=== PATIENT | female | born 1955 | race Caucasian/White ===

== ENCOUNTER 2019-01-23 12:09 | Outpatient (CLI) | payer OTHER ==
--- NOTE | 2019-01-23 15:48 | MMO ---
Bilateral MAMMO Bilat Screen [facility]. CLINICAL HISTORY: Patient is 63 years old and is seen for screening. The patient has no family history of breast cancer. The patient has no personal history of cancer. The patient has a history of Implants in 2009. VIEWS: The views performed were: bilateral craniocaudal with tomosynthesis and bilateral mediolateral oblique with tomosynthesis. MAMMOGRAM FINDINGS: The breasts are heterogeneously dense, which could obscure a lesion on mammography. There are no suspicious masses, suspicious calcifications, or new areas of architectural distortion. Normal implants are present.. IMPRESSION: THERE IS NO MAMMOGRAPHIC EVIDENCE OF MALIGNANCY. A ROUTINE FOLLOW-UP MAMMOGRAM IN 1 YEAR IS RECOMMENDED. THE RESULTS OF THIS EXAM WERE SENT TO THE PATIENT. ACR BI-RADS Category 1 - Negative MAMMOGRAPHY NOTE: 1. A negative mammogram report should not delay a biopsy if a dominant of clinically suspicious mass is present. 2. Approximately 10% to 15% of breast cancers are not detected by mammography. 3. Adenosis and dense breasts may obscure an underlying neoplasm.
== END 2019-01-23 12:10 | disposition home or self-care (01) ==
LOC: BICMAMMO 12:09
PROVIDERS: ATTEND Internal Medicine Geriatric Medicine
DX: Z12.31 Encounter for screening mammogram for malignant neoplasm of breast (principal); Z98.82 Breast implant status
CPT/HCPCS: 77063; 77067

== ENCOUNTER 2020-01-14 08:41 | Outpatient (CLI) | payer BC ==
--- NOTE | 2020-01-14 11:37 | NM ---
RADIONUCLIDE PARATHYROID SCAN WITH PLANAR IMAGES AND SPECT CT: HISTORY: Hyperparathyroidism, unspecified. RADIOPHARMACEUTICAL: 26 mCi technetium-99m sestamibi injected intravenously. FINDINGS: There is physiologic activity noted in the salivary glands, thyroid gland, heart, and visualized port ions of the liver. There is a focal area of persistent increased uptake in the right parathyroid glan d (likely inferior). No other suspicious abnormalities are seen. IMPRESSION: Findings are consistent with right-sided parathyroid adenoma (likely inferior). POS: JORDINA
== END 2020-01-14 08:42 | disposition home or self-care (01) ==
LOC: NM 08:41
PROVIDERS: ATTEND Student in an Organized Health Care Education/Training Program
DX: E21.3 Hyperparathyroidism, unspecified (principal)
CPT/HCPCS: 78072; A9500

== ENCOUNTER 2020-11-09 07:51 | Outpatient (CLI) | payer BC ==
--- NOTE | 2020-11-09 09:40 | CT ---
CT of the neck with and without IV contrast-parathyroid protocol: 11/09/2020 COMPARISON: None HISTORY: Hyperparathyroidism TECHNIQUE: Axial CT imaging at 2 mm intervals from the skull base through the mid chest with and with out IV contrast using a parathyroid protocol. Coronal and sagittal reformatted imaging obtained. FINDINGS: Partially imaged bilateral breast implants are present. The imaged lung parenchyma demonstr ates no acute findings. 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 Partially visualized coronary arterial calcification is noted. The visualized paranasal sinuses and mastoid air cells appear grossly unremarkable. The retroantral and the parapharyngeal fat appears clear bilaterally. The parotid glands and the subm andibular glands appear unremarkable. Motion artifact limits assessment at the level of the glottis. The tonsillar pillars, the epiglottis and the preepiglottic fat, the hyoid bone, thyroid cartilage, a nd the cricoid cartilage appear unremarkable. There is a oval mass abutting the posterior right lateral aspect of the esophagus within the right tr acheoesophageal groove, best seen on axial image 51 measuring 1.6 x 1.0 x 1.6 cm. The superior margin of this lesion is abutting the inferior posterior aspect of the right lobe of the thyroid glan d. This corresponds with the abnormality noted on the nuclear medicine parathyroid scan performed 01/14/2020, consistent with a parathyroid adenoma. The vascular structures of the neck appear patent. There is no lymphadenopathy evident within the nec k. The thyroid gland demonstrates a grossly unremarkable noncontrast enhanced appearance. Review of the osseous structures demonstrates partial fusion of the bilateral facet joints and interv ertebral disc at the C4-5 level. There is multilevel bilateral cervical spine facet hypertrophy. There is significant upper/mid thoracic spine dextroscoliosis. No worrisome lytic or blastic bone les ion is noted. IMPRESSION: Findings consistent with a parathyroid adenoma on the right abutting the posterior right lateral aspect of the esophagus at the level of the thoracic inlet just inferior and posterior to the right lobe of the thyroid gland abutting the ventral aspect of the C7 and T1 vertebral bodies.
[2020-11-09] MEDS ORDERED: Iopamidol-370 76% 500 ML 1 ML ONE (10:43)
== END 2020-11-09 07:52 | disposition home or self-care (01) ==
LOC: BICCT 07:51
PROVIDERS: ATTEND Student in an Organized Health Care Education/Training Program
DX: E21.3 Hyperparathyroidism, unspecified (principal)
CPT/HCPCS: 70492; 82565; Q9967

== ENCOUNTER 2021-01-21 07:29 | Outpatient (CLI) | payer BC | END 2021-01-21 07:30 | disposition home or self-care (01) | LOC: BICULT 07:29 | PROVIDERS: ATTEND Family Medicine | DX: I10 Essential (primary) hypertension (principal); E83.52 Hypercalcemia | CPT/HCPCS: 76770; 93975 ==

== ENCOUNTER 2021-01-27 08:48 | Outpatient (CLI) | payer BC ==
[2021-01-27 10:15] LABS: Hemoglobin 14.7 g/dL (12.0-15.5)
[2021-01-27 10:32] LABS: Anion Gap 14 mmol/L (10-20); BUN (Urea Nitrogen) 19 mg/dL (9.8-20.1); Calc. Creatinine Clearance 0 mL/min (70-130); Calcium 10.4 mg/dL (7.8-10.44); Carbon Dioxide 27 mmol/L (23-31); Chloride 102 mmol/L (98-107); Glucose 100 mg/dL (80-115); Potassium 4.4 mmol/L (3.5-5.1); Sodium 139 mmol/L (136-145)
[2021-01-27 22:12] LABS: SARS-CoV-2 PCR by NAA Not Detected (NotDetected)
== END 2021-01-27 08:49 | disposition home or self-care (01) ==
LOC: LABBT 08:48
PROVIDERS: ATTEND Student in an Organized Health Care Education/Training Program
DX: Z01.818 Encounter for other preprocedural examination (principal); E21.3 Hyperparathyroidism, unspecified; M81.0 Age-related osteoporosis without current pathological fracture; D35.1 Benign neoplasm of parathyroid gland; Z20.822 Contact with and (suspected) exposure to COVID-19
CPT/HCPCS: 80048; 85014; 85018; 87635; 93005; 93010; U0003; U0005

== ENCOUNTER 2021-02-01 06:45 | Observation (INO) | payer BC ==
[2021-01-31 13:15] VITALS: BMI 20.3
[2021-02-01] MEDS ORDERED: Fentanyl 250 MCG/5 ML VIAL ONE (06:53)
[2021-02-01] MEDS ORDERED: Acetaminophen 500 MG TAB ONE (07:14)
[2021-02-01] MEDS ORDERED: Lidocaine 1% w/Epinephrine 1:100K 20 ML VIAL ONE (08:41)
[2021-02-01] MEDS ORDERED: Bacitracin Zinc Ointment 30 gm TUBE ONE (08:41)
[2021-02-01] MEDS ORDERED: Midazolam HCl 2 mg/2 ml Vial ONE (08:52)
[2021-02-01] MEDS ORDERED: Esmolol 100 MG/10 ML VIAL ONE (09:03)
[2021-02-01] MEDS ORDERED: Ondansetron PF 4 MG/2 ML Vial ONE (09:03)
[2021-02-01] MEDS ORDERED: ePHEDrine Sulfate 50 MG/10 ML VIAL ONE (09:03)
[2021-02-01] MEDS ORDERED: PHENYLEPHRINE-NS 100 MCG/ML 10 ML SYRINGE ONE (09:03)
[2021-02-01] MEDS ORDERED: Ketorolac Tromethamine 30 MG/ML VIAL ONE (09:03)
[2021-02-01] MEDS ORDERED: Dexamethasone 20 MG/5 ML VIAL ONE (09:03)
[2021-02-01] MEDS ORDERED: PROPOFOL 200 MG/20 ML VIAL ONE (09:03)
[2021-02-01] MEDS ORDERED: Rocuronium Bromide 10 MG/ML (10ML VIAL) ONE (09:03)
[2021-02-01] MEDS ORDERED: Lidocaine 1% PF 5 ML VIAL ONE (09:03)
[2021-02-01] MEDS ORDERED: Ondansetron PF 4 MG/2 ML Vial IVP PRN (14:05)
[2021-02-01] MEDS ORDERED: Morphine 4 MG/ML VIAL SLOW IVP PRN (14:06)
[2021-02-01] MEDS ORDERED: HYDROcodone/Acetaminophen 5/325 mg Tablet PO PRN (14:06)
[2021-02-01] MEDS ORDERED: Lactated Ringer's 1,000 ML IV SCH (14:15)
[2021-02-01] MEDS: Calcium Carbonate 500 MG ChewTAB PO SCH ×2 (15:42→20:35)
[2021-02-01] MEDS: Docusate 100 MG CAP PO SCH (20:34)
[2021-02-01] MEDS ORDERED: DICLOFENAC POTASSIUM 50 MG PO PRN (21:22)
[2021-02-01] MEDS ORDERED: NARATRIPTAN HCL 2.5 MG PO SCH (21:30)
[2021-02-01] MEDS ORDERED: [UNRECOGNIZED DRUG - OTHER] IM SCH (21:30)
[2021-02-02 05:58] LABS: Calcium 9.5 mg/dL (7.8-10.44); Magnesium 1.8 mg/dL (1.6-2.6)
[2021-02-02] MEDS ORDERED: Levothyroxine Sodium 50 MCG TAB PO SCH (06:00)
[2021-02-02 07:43] VITALS: BP 126/75; TEMP 97.9
[2021-02-02] MEDS ORDERED: Lisinopril 5 MG TAB PO SCH (09:00)
[2021-02-02] MEDS ORDERED: Calcitriol 0.25 MCG CAP PO SCH (09:00)
[2021-02-02] MEDS: Calcium Carbonate 500 MG ChewTAB PO SCH (09:45)
[2021-02-02] MEDS: Docusate 100 MG CAP PO SCH (09:45)
== END 2021-02-02 10:19 | disposition home or self-care (01) ==
LOC: SDC 06:45 → SURG A 15:02
PROVIDERS: ADMIT Student in an Organized Health Care Education/Training Program; ATTEND Student in an Organized Health Care Education/Training Program
PROC: 0GTQ0ZZ Resection of Multiple Parathyroid Glands, Open Approach (ICD-10-PCS; principal; 2021-02-01)
PROC: 07T10ZZ Resection of Right Neck Lymphatic, Open Approach (ICD-10-PCS; 2021-02-01)
DX: E21.3 Hyperparathyroidism, unspecified (principal); D35.1 Benign neoplasm of parathyroid gland; K22.8 Other specified diseases of esophagus; R59.0 Localized enlarged lymph nodes; M81.0 Age-related osteoporosis without current pathological fracture; E03.9 Hypothyroidism, unspecified; Z87.891 Personal history of nicotine dependence; Z79.899 Other long term (current) drug therapy
CPT/HCPCS: 36415; 82310; 83735; 83970; 84100; 88305; 88331; 88334; G0378; J0690; J1100; J1885; J2250; J2405; J2704; J3010

== ENCOUNTER 2021-04-18 10:16 | Outpatient (CLI) | payer BC | END 2021-04-18 10:17 | disposition home or self-care (01) | LOC: BICMAMMO 10:16 | PROVIDERS: ATTEND Family Medicine | DX: Z12.31 Encounter for screening mammogram for malignant neoplasm of breast (principal); Z98.82 Breast implant status; N64.89 Other specified disorders of breast | CPT/HCPCS: 77063; 77067 ==

== ENCOUNTER 2022-01-10 08:24 | Outpatient (CLI) | payer BC | END 2022-01-10 08:25 | disposition home or self-care (01) | LOC: BICMAMMO 08:24 | PROVIDERS: ATTEND Family Medicine | DX: N63.11 Unspecified lump in the right breast, upper outer quadrant (principal) | CPT/HCPCS: 77066; G0279 ==

== ENCOUNTER 2022-03-28 15:37 | Outpatient (CLI) | payer BC | END 2022-03-28 15:38 | disposition home or self-care (01) | LOC: BICRAD 15:37 | PROVIDERS: ATTEND Family Medicine | DX: M54.41 Lumbago with sciatica, right side (principal); M41.9 Scoliosis, unspecified; M47.816 Spondylosis without myelopathy or radiculopathy, lumbar region | CPT/HCPCS: 72100 ==

== ENCOUNTER 2022-04-12 08:50 | Outpatient (CLI) | payer BC | END 2022-04-12 08:51 | disposition home or self-care (01) | LOC: SCSMRI 08:50 | PROVIDERS: ATTEND Family Medicine | DX: G95.19 Other vascular myelopathies (principal); M41.9 Scoliosis, unspecified; M48.07 Spinal stenosis, lumbosacral region; M48.061 Spinal stenosis, lumbar region without neurogenic claudication; R93.421 Abnormal radiologic findings on diagnostic imaging of right kidney | CPT/HCPCS: 72148 ==

== ENCOUNTER 2022-05-01 08:52 | Outpatient (CLI) | payer BC | END 2022-05-01 08:53 | disposition home or self-care (01) | LOC: BICMAMMO 08:52 | PROVIDERS: ATTEND Family Medicine | DX: M81.8 Other osteoporosis without current pathological fracture (principal); M85.89 Other specified disorders of bone density and structure, multiple sites | CPT/HCPCS: 77080 ==

== ENCOUNTER 2022-06-29 08:01 | Outpatient (CLI) | payer BC | END 2022-06-29 08:02 | disposition home or self-care (01) | LOC: CT 08:01 | PROVIDERS: ATTEND Urology | DX: N28.89 Other specified disorders of kidney and ureter (principal); D35.1 Benign neoplasm of parathyroid gland; K76.9 Liver disease, unspecified; M41.9 Scoliosis, unspecified | CPT/HCPCS: 71260; 78306; A9503 ==

== ENCOUNTER 2022-08-02 09:52 | Outpatient (CLI) | payer BC | END 2022-08-02 09:53 | disposition home or self-care (01) | LOC: LABBT 09:52 | PROVIDERS: ATTEND Urology | DX: Z01.818 Encounter for other preprocedural examination (principal); D35.1 Benign neoplasm of parathyroid gland; I10 Essential (primary) hypertension; E21.3 Hyperparathyroidism, unspecified; M54.16 Radiculopathy, lumbar region; M48.062 Spinal stenosis, lumbar region with neurogenic claudication; R35.0 Frequency of micturition; M41.9 Scoliosis, unspecified; N28.89 Other specified disorders of kidney and ureter | CPT/HCPCS: 71046; 80048; 81001; 85027; 85610; 85730; 86850; 86900; 86901; 87086 ==

== ENCOUNTER 2022-08-07 06:02 | Inpatient (IN) | payer BC ==
[2022-08-02 11:37] LABS: Hemoglobin 14.1 g/dL (12.0-15.5); Mean Corpuscular HGB CONC 34.3 g/dL (32.0-36.0); Mean Corpuscular Hemoglobin 30.3 pg (27.0-33.0); Mean Corpuscular Volume 88.2 fl (81.6-98.3); Mean Platelet Volume 10.3 fl (7.4-10.4); Platelet Count 249 10x3/uL (150-450); Red Blood Cell (RBC) Count 4.66 10x6/uL (3.90-5.03); White Blood Cell (WBC) Count 5.5 10x3/uL (3.5-10.5)
[2022-08-02 11:44] LABS: Bilirubin Neg (Negative); Blood, Urine 50 (Negative); Clarity Clear (Clear); Glucose, Urine (Dipstick) Normal (Negative); Ketone, Urine Negative (Negative); Leukocyte Negative (Negative); Nitrite Negative (Negative); Protein, Urine (Dipstick) Negative (Neg-Trace); Specific Gravity, Urine 1.015 (1.005-1.030); Urobilinogen Normal mg/dL (Less than 2)
[2022-08-02 11:55] LABS: PTT 25.2 sec (22.0-33.0); Prothrombin Time 10.5 sec (9.5-12.1)
[2022-08-02 12:07] LABS: Anion Gap 12 mmol/L (10-20); BUN (Urea Nitrogen) 18 mg/dL (9.8-20.1); Calc. Creatinine Clearance 0 mL/min (70-130); Calcium 9.7 mg/dL (7.8-10.44); Carbon Dioxide 29 mmol/L (23-31); Chloride 104 mmol/L (98-107); Estimated GFR 84; Glucose 82 mg/dL (80-115); Potassium 4.2 mmol/L (3.5-5.1); Sodium 141 mmol/L (136-145)
[2022-08-02 12:18] LABS: Bacteria/HPF Rare-Few HPF (None Seen); RBC/HPF 0-3 HPF (0-3); Squamous Epithelial 0-3 HPF (0-3); WBC/HPF 0-3 HPF (0-3)
[2022-08-04 09:26] VITALS: BMI 20.7
[2022-08-07] MEDS ORDERED: Levofloxacin 500 mg/D5W 100 ml Premix Bag ONE ×2 (06:27→07:34)
[2022-08-07] MEDS ORDERED: CEFAZOLIN 2 GM VIAL ONE (06:27)
[2022-08-07] MEDS ORDERED: Methylene Blue 50 MG/10 ML AMPUL ONE (06:47)
[2022-08-07] MEDS ORDERED: Gentamicin 80 MG/2 ML VIAL ONE (06:47)
[2022-08-07] MEDS ORDERED: fentaNYL PF 100 MCG/2 ML SYRINGE ONE (06:49)
[2022-08-07] MEDS ORDERED: Bupivacaine/Epinephrine 0.25% 30 ML VIAL ONE ×2 (06:49→07:39)
[2022-08-07] MEDS ORDERED: Dexmedetomidine 200 MCG/2 ML VIAL ONE (06:49)
[2022-08-07] MEDS ORDERED: Sodium Chloride 0.9% 100 ML ONE (06:51)
[2022-08-07 07:12] LABS: SARS-CoV-2 NAA Rapid Test Not Detected (NotDetected)
[2022-08-07] MEDS ORDERED: Fentanyl 100 MCG/2 ML VIAL ONE (07:13)
[2022-08-07] MEDS ORDERED: Midazolam HCl 2 mg/2 ml Vial ONE (07:13)
[2022-08-07] MEDS ORDERED: Dexamethasone 20 MG/5 ML VIAL ONE (07:55)
[2022-08-07] MEDS ORDERED: NEOSTIGMINE 3 MG/3 ML SYR 3 MG/3 ML SYRINGE ONE (07:55)
[2022-08-07] MEDS ORDERED: PHENYLEPHRINE-NS 100 MCG/ML 10 ML SYRINGE ONE (07:55)
[2022-08-07] MEDS ORDERED: Ondansetron PF 4 MG/2 ML Vial ONE (07:55)
[2022-08-07] MEDS ORDERED: ePHEDrine 50 MG/ML VIAL ONE (07:55)
[2022-08-07] MEDS ORDERED: PROPOFOL 200 MG/20 ML VIAL ONE (07:55)
[2022-08-07] MEDS ORDERED: Glycopyrrolate 0.2 MG/ML 5 ML SYRINGE ONE (07:55)
[2022-08-07] MEDS ORDERED: Rocuronium Bromide 10 MG/ML (10ML VIAL) ONE (07:55)
[2022-08-07] MEDS ORDERED: Lidocaine 1.5% w/Epi 1:200K 30 ML VIAL (Epid Use) ONE (07:55)
[2022-08-07] MEDS ORDERED: Promethazine HCl 25 MG/ML VIAL IM PRN ×2 (09:15→10:30)
[2022-08-07] MEDS ORDERED: Bupivacaine 0.25% 10 ML VIAL EPIDURAL PRN (09:15)
[2022-08-07] MEDS ORDERED: Oxybutynin 5 MG TAB PO PRN (10:25)
[2022-08-07] MEDS ORDERED: Mag-Al 1200 mg/1200 mg/30 ML UDCUP PO PRN (10:25)
[2022-08-07] MEDS ORDERED: Ondansetron PF 4 MG/2 ML Vial IVP PRN (10:25)
[2022-08-07] MEDS ORDERED: hydrALAZINE 20 MG/ML VIAL SLOW IVP PRN (10:25)
[2022-08-07] MEDS ORDERED: diphenhydrAMINE 50 MG/ML VIAL IVP PRN (10:25)
[2022-08-07] MEDS ORDERED: Ondansetron HCl/PF 4 MG/2 ML Vial IVP PRN (10:30)
[2022-08-07] MEDS ORDERED: Promethazine HCl 25 MG/ML VIAL IVPB PRN (10:30)
[2022-08-07 11:06] LABS: #Basophils 0.1 thou/uL (0.0-0.2); #Lymphocytes 0.9 thou/uL (1.20-3.40); #Monocytes 0.2 thou/uL (0.11-0.59); #Neutrophils 8.1 thou/uL (1.40-6.50); %Eosinophils 0.3 % (0.0-10.0); %Lymphocytes 9.6 % (21.0-51.0); %Monocytes 2.1 % (0.0-10.0); Hemoglobin 13.4 g/dL (12.0-16.0); Mean Corpuscular HGB CONC 32.7 g/dL (32.0-36.0); Mean Corpuscular Hemoglobin 30.7 pg (27.0-31.0); Mean Corpuscular Volume 93.6 fl (78.0-98.0); Platelet Count 188 thou/uL (130-400); RBC Distribution Width 11.7 % (11.5-14.5); Red Blood Cell (RBC) Count 4.36 mill/uL (4.20-5.40); White Blood Cell (WBC) Count 9.3 thou/uL (4.8-10.8)
[2022-08-07 11:23] LABS: Anion Gap 13 mmol/L (10-20); BUN (Urea Nitrogen) 13 mg/dL (9.8-20.1); Calc. Creatinine Clearance 65 mL/min (70-130); Calcium 7.9 mg/dL (7.8-10.44); Carbon Dioxide 18 mmol/L (23-31); Chloride 114 mmol/L (98-107); Estimated GFR 93; Glucose 138 mg/dL (80-115); Potassium 3.9 mmol/L (3.5-5.1); Sodium 141 mmol/L (136-145)
[2022-08-07] MEDS: Sodium Chloride 0.9% 1,000 ML IV SCH ×2 (11:40→20:26)
[2022-08-07] MEDS: Famotidine/PF 20 mg/2ml Vial SLOW IVP SCH (20:20)
[2022-08-07] MEDS: Docusate 100 MG CAP PO SCH (20:20)
[2022-08-07] MEDS: Fentanyl/Bupivacaine 100 ML EPIDURAL SCH (21:58)
[2022-08-08] MEDS: Sodium Chloride 0.9% 1,000 ML IV SCH (03:31)
[2022-08-08 05:49] LABS: #Lymphocytes 0.6 thou/uL (1.20-3.40); #Monocytes 0.7 thou/uL (0.11-0.59); #Neutrophils 5.5 thou/uL (1.40-6.50); %Basophils 0.2 % (0.0-1.0); %Eosinophils 0.1 % (0.0-10.0); %Lymphocytes 8.7 % (21.0-51.0); %Monocytes 9.7 % (0.0-10.0); %Neutrophils 81.4 % (42.0-75.0); Hemoglobin 10.3 g/dL (12.0-16.0); Mean Corpuscular HGB CONC 33.7 g/dL (32.0-36.0); Mean Corpuscular Hemoglobin 30.8 pg (27.0-31.0); Mean Corpuscular Volume 91.6 fl (78.0-98.0); Platelet Count 184 thou/uL (130-400); RBC Distribution Width 11.9 % (11.5-14.5); Red Blood Cell (RBC) Count 3.35 mill/uL (4.20-5.40); White Blood Cell (WBC) Count 6.8 thou/uL (4.8-10.8)
[2022-08-08] MEDS: cefTRIAXone\\ROCEPHIN 1 GM in Sodium Chloride 0.9% 100 ML IVPB SCH (05:58)
[2022-08-08 06:02] LABS: Anion Gap 11 mmol/L (10-20); BUN (Urea Nitrogen) 16 mg/dL (9.8-20.1); Calc. Creatinine Clearance 55 mL/min (70-130); Calcium 7.4 mg/dL (7.8-10.44); Carbon Dioxide 19 mmol/L (23-31); Chloride 109 mmol/L (98-107); Estimated GFR 75; Glucose 105 mg/dL (80-115); Potassium 4.1 mmol/L (3.5-5.1); Sodium 135 mmol/L (136-145)
[2022-08-08] MEDS: Docusate 100 MG CAP PO SCH ×2 (09:18→20:52)
[2022-08-08] MEDS: Famotidine/PF 20 mg/2ml Vial SLOW IVP SCH ×2 (09:19→20:52)
[2022-08-08] MEDS: Fentanyl/Bupivacaine 100 ML EPIDURAL SCH ×2 (11:56→23:41)
[2022-08-08 15:09] LABS: Hemoglobin 11.2 g/dL (12.0-16.0)
[2022-08-08] MEDS: Acetaminophen 325 MG TAB PO PRN (20:59)
[2022-08-09] MEDS ORDERED: Morphine 4 MG/ML VIAL SLOW IVP PRN ×2 (00:59→01:01)
[2022-08-09] MEDS ORDERED: HYDROcodone/Acetaminophen 10/325 mg Tablet PO PRN (04:34)
[2022-08-09] MEDS: HYDROcodone/Acetaminophen 10/325 mg Tablet PO PRN ×3 (05:50→18:09)
[2022-08-09] MEDS: cefTRIAXone\\ROCEPHIN 1 GM in Sodium Chloride 0.9% 100 ML IVPB SCH (05:51)
[2022-08-09 06:37] LABS: #Lymphocytes 0.7 thou/uL (1.20-3.40); #Monocytes 0.5 thou/uL (0.11-0.59); #Neutrophils 6.3 thou/uL (1.40-6.50); %Basophils 0.5 % (0.0-1.0); %Eosinophils 0.2 % (0.0-10.0); %Lymphocytes 9.4 % (21.0-51.0); %Monocytes 6.6 % (0.0-10.0); %Neutrophils 83.3 % (42.0-75.0); Hemoglobin 11.1 g/dL (12.0-16.0); Mean Corpuscular HGB CONC 32.8 g/dL (32.0-36.0); Mean Corpuscular Hemoglobin 30.3 pg (27.0-31.0); Mean Corpuscular Volume 92.3 fl (78.0-98.0); Mean Platelet Volume 8.2 fL (7.4-10.4); Platelet Count 171 thou/uL (130-400); RBC Distribution Width 11.9 % (11.5-14.5); Red Blood Cell (RBC) Count 3.65 mill/uL (4.20-5.40); White Blood Cell (WBC) Count 7.6 thou/uL (4.8-10.8)
[2022-08-09 06:56] LABS: Anion Gap 10 mmol/L (10-20); BUN (Urea Nitrogen) 12 mg/dL (9.8-20.1); Calc. Creatinine Clearance 55 mL/min (70-130); Carbon Dioxide 25 mmol/L (23-31); Chloride 108 mmol/L (98-107); Estimated GFR 76; Glucose 117 mg/dL (80-115); Potassium 3.8 mmol/L (3.5-5.1); Sodium 139 mmol/L (136-145)
[2022-08-09] MEDS: Famotidine/PF 20 mg/2ml Vial SLOW IVP SCH ×2 (09:51→21:10)
[2022-08-09] MEDS: Bisacodyl 10 MG SUPP PR PRN (09:51)
[2022-08-09] MEDS: Docusate 100 MG CAP PO SCH ×2 (18:11→21:10)
[2022-08-10 05:59] LABS: #Lymphocytes 0.7 thou/uL (1.20-3.40); #Monocytes 0.5 thou/uL (0.11-0.59); #Neutrophils 5.9 thou/uL (1.40-6.50); %Basophils 0.2 % (0.0-1.0); %Eosinophils 0.6 % (0.0-10.0); %Lymphocytes 9.3 % (21.0-51.0); %Monocytes 6.9 % (0.0-10.0); Hemoglobin 10.8 g/dL (12.0-16.0); Mean Corpuscular HGB CONC 34.4 g/dL (32.0-36.0); Mean Corpuscular Hemoglobin 31.6 pg (27.0-31.0); Mean Corpuscular Volume 91.7 fl (78.0-98.0); Mean Platelet Volume 8.1 fL (7.4-10.4); Platelet Count 174 thou/uL (130-400); RBC Distribution Width 11.7 % (11.5-14.5); Red Blood Cell (RBC) Count 3.41 mill/uL (4.20-5.40); White Blood Cell (WBC) Count 7.1 thou/uL (4.8-10.8)
[2022-08-10 06:28] LABS: Anion Gap 11 mmol/L (10-20); BUN (Urea Nitrogen) 9 mg/dL (9.8-20.1); Calc. Creatinine Clearance 61 mL/min (70-130); Calcium 8.3 mg/dL (7.8-10.44); Carbon Dioxide 26 mmol/L (23-31); Chloride 102 mmol/L (98-107); Estimated GFR 86; Glucose 104 mg/dL (80-115); Potassium 3.4 mmol/L (3.5-5.1); Sodium 136 mmol/L (136-145)
[2022-08-10] MEDS: Famotidine/PF 20 mg/2ml Vial SLOW IVP SCH ×2 (08:20→20:37)
[2022-08-10] MEDS: Bisacodyl 10 MG SUPP PR PRN (08:20)
[2022-08-10] MEDS: Acetaminophen 325 MG TAB PO PRN ×3 (08:20→21:48)
[2022-08-10] MEDS: Docusate 100 MG CAP PO SCH ×2 (08:20→20:37)
[2022-08-10] MEDS: cefTRIAXone\\ROCEPHIN 1 GM in Sodium Chloride 0.9% 100 ML IVPB SCH (09:52)
[2022-08-11 05:58] LABS: #Eosinphils 0.1 thou/uL (0.0-0.7); #Lymphocytes 0.8 thou/uL (1.20-3.40); #Monocytes 0.5 thou/uL (0.11-0.59); #Neutrophils 3.7 thou/uL (1.40-6.50); %Basophils 0.3 % (0.0-1.0); %Lymphocytes 15.7 % (21.0-51.0); %Monocytes 9.6 % (0.0-10.0); %Neutrophils 72.5 % (42.0-75.0); Hemoglobin 10.9 g/dL (12.0-16.0); Mean Corpuscular HGB CONC 34.1 g/dL (32.0-36.0); Mean Corpuscular Hemoglobin 31.5 pg (27.0-31.0); Mean Corpuscular Volume 92.6 fl (78.0-98.0); Mean Platelet Volume 8.1 fL (7.4-10.4); Platelet Count 216 thou/uL (130-400); RBC Distribution Width 11.6 % (11.5-14.5); Red Blood Cell (RBC) Count 3.47 mill/uL (4.20-5.40)
[2022-08-11] MEDS: cefTRIAXone\\ROCEPHIN 1 GM in Sodium Chloride 0.9% 100 ML IVPB SCH (06:03)
[2022-08-11 06:08] LABS: Anion Gap 9 mmol/L (10-20); BUN (Urea Nitrogen) 9 mg/dL (9.8-20.1); Calc. Creatinine Clearance 58 mL/min (70-130); Carbon Dioxide 31 mmol/L (23-31); Chloride 104 mmol/L (98-107); Estimated GFR 81; Glucose 100 mg/dL (80-115); Potassium 3.4 mmol/L (3.5-5.1); Sodium 141 mmol/L (136-145)
[2022-08-11 07:30] VITALS: BP 148/87; TEMP 97.9
[2022-08-11] MEDS: Famotidine/PF 20 mg/2ml Vial SLOW IVP SCH (09:01)
[2022-08-11] MEDS: Docusate 100 MG CAP PO SCH (09:02)
== END 2022-08-11 09:46 | disposition home or self-care (01) | DRG 658 ==
LOC: SDC 06:02 → OBSVTOIN 10:30 → SURG A 10:30
PROVIDERS: ADMIT Urology; ATTEND Urology
PROC: 0TB10ZZ Excision of Left Kidney, Open Approach (ICD-10-PCS; principal; 2022-08-07)
DX: C64.1 Malignant neoplasm of right kidney, except renal pelvis (principal); Z20.822 Contact with and (suspected) exposure to COVID-19; E03.9 Hypothyroidism, unspecified; Z90.710 Acquired absence of both cervix and uterus; Z79.890 Hormone replacement therapy; Z79.899 Other long term (current) drug therapy
CPT/HCPCS: 36415; 71045; 80048; 81001; 82570; 85025; 85027; 85610; 85730; 86850; 86900; 86901; 87086; 88307; 93005; 93010; A4649; C1713; C1776; C1889; J0696; J1100; J1580; J1956; J2001; J2250; J2270; J2405; J2704; J3010; J3490; J7050; Q9968; S0028; U0002

== ENCOUNTER 2023-01-15 09:49 | Outpatient (CLI) | payer BC | END 2023-01-15 09:50 | disposition home or self-care (01) | LOC: BICMAMMO 09:49 | PROVIDERS: ATTEND Family Medicine | DX: Z12.31 Encounter for screening mammogram for malignant neoplasm of breast (principal) | CPT/HCPCS: 77063; 77067 ==

== ENCOUNTER 2024-03-04 10:48 | Outpatient (CLI) | payer BC | END 2024-03-04 10:49 | disposition home or self-care (01) | LOC: BICMAMMO 10:48 | PROVIDERS: ATTEND Family Medicine | DX: Z12.31 Encounter for screening mammogram for malignant neoplasm of breast (principal); Z98.82 Breast implant status; Z85.528 Personal history of other malignant neoplasm of kidney | CPT/HCPCS: 77063; 77067 ==

== ENCOUNTER 2025-08-06 11:07 | Outpatient (CLI) | payer BC | END 2025-08-06 11:08 | disposition home or self-care (01) | LOC: BICMAMMO 11:07 | PROVIDERS: ATTEND Internal Medicine | DX: C50.511 Malignant neoplasm of lower-outer quadrant of right female breast (principal); M81.8 Other osteoporosis without current pathological fracture; M85.851 Other specified disorders of bone density and structure, right thigh; M85.852 Other specified disorders of bone density and structure, left thigh | CPT/HCPCS: 77080 ==